=== PATIENT | female | born 1995 | race Caucasian/White ===

== ENCOUNTER 2023-01-30 11:17 | Emergency (ER) | payer MEDICAID ==
[~2023-01-30] VITALS: Ht 157.5 cm; Wt 77.1 kg
--- NOTE | 2023-01-30 11:33 | NUR ---
DR Ruvalcaba at the bedside for MSE.
[2023-01-30 12:03] VITALS: BP 113/66
--- NOTE | 2023-01-30 12:04 | NUR ---
Patient discharged to home in stable condition. Written and verbal after care instructions given. Patient verbalizes understanding of instructions. Stressed follow up or return to ER for worsening s/s.
== END 2023-01-30 12:04 | disposition home or self-care (01) ==
LOC: ER 11:17
DX: K52.9 Noninfective gastroenteritis and colitis, unspecified (principal)
CPT/HCPCS: A4663